=== PATIENT | female | born 1980 | race American Indian/Alaskan Native ===

== ENCOUNTER 2021-11-08 18:01 | Emergency (ER) | payer OTHER ==
[2021-11-08] MEDS ORDERED: oxyCODONE /ACETAMINOPHEN 5-325MG TAB PO ONE (18:59)
[2021-11-08] MEDS ORDERED: ONDANSETRON 4 MG ODT TAB PO ONE (18:59)
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
--- NOTE | 2021-11-08 20:46 | Vascular Lab Report ---
DUPLEX DOPPLER LOWER EXTREMITY VEINS, LEFT INDICATION / CLINICAL INFORMATION: Left lower extremity pain and swelling. TECHNIQUE: Duplex doppler imaging was performed through the veins of the left lower extremity using v enous compression and other maneuvers. COMPARISON: None available. FINDINGS: This exam is limited by the patient's body habitus. LEFT COMMON FEMORAL VEIN: Negative. LEFT FEMORAL VEIN: Acute thrombus. LEFT POPLITEAL VEIN: Acute thrombus. LEFT CALF VEINS: Not visualized. ADDITIONAL FINDINGS: None. IMPRESSION: 1. Limited exam due to the patient's body habitus with acute left lower extremity DVT as above. CRITICAL RESULT: Time of Discovery (RIM TECHNICIAN/CDT): 19:35 Time of Communication (RIM TECHNICIAN/CDT): 19:41 Licensed Practitioner Receiving Report: VINCENT Jett in Emergency Department Read-Back Performed: Yes. Signer Name: Stanford Jackson MD Signed: 11/08/2021 8:41 PM Workstation Name: [id number]
[2021-11-08 21:43] LABS: Basophils % (Auto) 0.7 % (0.0-1.8); Eosinophils # (Auto) 0.1 K/mm3 (0.0-0.4); Eosinophils % (Auto) 1.5 % (0.0-4.3); Hematocrit 20.6 % (30.3-42.9); Hemoglobin 6.5 gm/dl (10.1-14.3); Lymphocytes # (Auto) 0.9 K/mm3 (1.2-5.4); Lymphocytes % (Auto) 15.6 % (13.4-35.0); Mean Corpuscular HGB Conc 32 % (30-34); Mean Corpuscular Volume 71 fl (79-97); Monocytes # (Auto) 0.7 K/mm3 (0.0-0.8); Monocytes % (Auto) 12.4 % (0.0-7.3); Platelet Count 413 K/mm3 (140-440); Red Blood Count 2.88 M/mm3 (3.65-5.03)
[2021-11-08 21:52] LABS: INR 1.03 (0.87-1.13)
[2021-11-08 21:53] LABS: Partial Thromboplastin Time 43.4 Sec. (24.2-36.6)
[2021-11-08 21:59] LABS: Blood Urea Nitrogen 6 mg/dL (7-17); Hemolysis Index 0
[2021-11-08 22:20] LABS: BUN/Creatinine Ratio 9
[2021-11-08] MEDS ORDERED: ENOXAPARIN 100 MG/1 ML INJ SUB-Q STA (23:27)
--- NOTE | 2021-11-08 23:56 | Cat Scan Report ---
CTA CHEST WITH CONTRAST INDICATION / CLINICAL INFORMATION: Patient complains of S.O.B. with a Hx of DVT's. TECHNIQUE: Axial CT images were obtained through the chest after injection of Omnipaque 350, 100 cc I V contrast. 3 plane MIP and/or 3D reconstructions were produced. All CT scans at this location are pe rformed using CT dose reduction for ALARA by means of automated exposure control. COMPARISON: None available. FINDINGS: PULMONARY ARTERIES: No pulmonary emboli. THORACIC AORTA: No significant abnormality. HEART: No significant abnormality. CORONARY ARTERY CALCIFICATION: None. MEDIASTINUM / ZULEMA: No significant abnormality. PLEURA: No pleural effusion. No pneumothorax. LUNGS: No significant infiltrate. Mild air trapping left base. ADDITIONAL FINDINGS: None. UPPER ABDOMEN: No acute findings. SKELETAL STRUCTURES: No significant osseous abnormality. IMPRESSION: 1. No CT evidence for pulmonary embolism. 2. Mild air trapping left base. 3. Negative for pneumonia. Signer Name: Isael Weston MD Signed: 11/08/2021 11:51 PM Workstation Name: [id number]
[2021-11-09 00:06] LABS: Alanine Aminotransferase 8 units/L (7-56); Albumin 3.5 g/dL (3.9-5)
[2021-11-09 00:07] LABS: Bilirubin,Direct < 0.2 mg/dL (0-0.2)
[2021-11-09 03:47] VITALS: BP 142/74
== END 2021-11-09 03:47 | disposition home or self-care (01) ==
LOC: ED 18:01
DX: I82.412 Acute embolism and thrombosis of left femoral vein (principal); Z91.040 Latex allergy status
CPT/HCPCS: 36415; 71275; 80048; 80076; 83880; 84484; 84702; 85025; 85610; 85730; 93971; 96372; 99284; J1650; Q9967; J3490; Q0162

== ENCOUNTER 2021-12-12 10:25 | Emergency (ER) | payer OTHER ==
[2021-12-12] MEDS ORDERED: SODIUM CHLORIDE 0.9% 1000 ML 1,000 ML IV ONE (11:18)
--- NOTE | 2021-12-12 11:21 | Emergency Department Report ---
<TONY CHEATHAM - Last Filed: 12/12/21 12:09> ED General Adult HPI - General Chief complaint: Recheck/Abnormal Lab/Rx Stated complaint: BLOOD TRANFUSION Source: patient Mode of arrival: Ambulatory Limitations: No Limitations - History of Present Illness Initial comments: Patient is a 41-year-old -[place] female with a history of DVT and who is currently on Xarelto, and iron deficiency anemia and history of heavy vaginal bleeding who presents to the ED with complaint of acute onset persistent heavy vaginal bleeding for the last 10 days. Patient states that in the last 4 days she has been feeling lightheaded, generalized weakness and decided come to the ED for evaluation. Patient states that the symptoms have worsened in the last 24 hours. Patient denies dizziness, syncope, chest pain or shortness of breath, fever, chills, nausea and vomiting, diarrhea, cough, sore throat, abdominal pain, dysuria or low back pain. MD Complaint: Heavy vaginal bleeding, lightheadedness, generalized weakness -: Sudden, days(s) (10) Location: genitals (Vaginal bleeding) Radiation: non-radiation Severity scale (0 -10): 6 Quality: dull Consistency: constant Improves with: none Worsens with: movement, other (Physical activity) Associated Symptoms: denies other symptoms, loss of appetite, malaise, weakness. denies: confusion, chest pain, cough, diaphoresis, fever/chills, headaches, nausea/vomiting, rash, seizure, shortness of breath, syncope Treatments Prior to Arrival: none - Related Data Home Medications Medication Instructions Recorded Confirmed Last Taken Albuterol Mdi (or & Nicu Only) 1 puff IH PRN PRN 11/29/21 11/29/21 2 Months Ago [ProAir HFA Inhaler] ~10/01/21 Amlodipine Besylate [Norvasc] 5 mg PO DAILY 11/29/21 11/29/21 11/28/21 Fluticasone Propion/Salmeterol 1 each IH PRN 11/29/21 11/29/21 2 Months Ago [Wixela 250-50 Inhub] ~10/01/21 Iron Fum,Ps/Folic/Bcomp,C No.9 1 each PO DAILY 11/29/21 11/29/21 11/28/21 [Integra Plus Capsule] Rivaroxaban [Xarelto Starter Pack] 1 each PO DAILY 11/29/21 11/29/21 11/28/21 Triamterene/Hydrochlorothiazid 1 tab PO DAILY 11/29/21 11/29/21 2 Months Ago [Triamterene-Hctz 37.5-25 mg Tb] ~10/01/21 Previous Rx's Medication Instructions Recorded Last Taken Type Acetaminophen/Codeine [Tylenol 1 tab PO Q6H PRN #12 tab 11/09/21 2 Days Ago Rx /Codeine # 3 tab] ~11/27/21 Tizanidine HCl 2 mg PO Q6H PRN #24 11/29/21 Unknown Rx oxyCODONE /ACETAMINOPHEN [Percocet 1 tab PO Q6HR PRN #24 tablet 11/29/21 Unknown Rx 5/325] Allergies Allergy/AdvReac Type Severity Reaction Status Date / Time latex AdvReac Mild Unknown Verified 11/08/21 19:31 ED Review of Systems Constitutional: malaise, weakness. denies: chills, fever Eyes: denies: eye pain, eye discharge, vision change ENT: denies: ear pain, throat pain Respiratory: denies: cough, shortness of breath, wheezing Cardiovascular: other (Lightheadedness). denies: chest pain, palpitations, dyspnea on exertion, edema, syncope Endocrine: no symptoms reported Gastrointestinal: denies: abdominal pain, nausea, vomiting, diarrhea Genitourinary: denies: urgency, dysuria, discharge Musculoskeletal: denies: back pain, joint swelling, arthralgia Skin: denies: rash, lesions Neurological: denies: headache, weakness, paresthesias Psychiatric: denies: anxiety, depression Hematological/Lymphatic: denies: easy bleeding, easy bruising ED Past Medical Hx - Past Medical History Hx Hypertension: Yes Hx Deep Vein Thrombosis: Yes Hx Asthma: Yes - Social History Smoking Status: Never Smoker - Medications Home Medications: Home Medications Medication Instructions Recorded Confirmed Last Taken Type Acetaminophen/Codeine [Tylenol 1 tab PO Q6H PRN #12 tab 11/09/21 11/29/21 2 Days Ago Rx /Codeine # 3 tab] ~11/27/21 Albuterol Mdi (or & Nicu Only) 1 puff IH PRN PRN 11/29/21 11/29/21 2 Months Ago History [ProAir HFA Inhaler] ~10/01/21 Amlodipine Besylate [Norvasc] 5 mg PO DAILY 11/29/21 11/29/21 11/28/21 History Fluticasone Propion/Salmeterol 1 each IH PRN 11/29/21 11/29/21 2 Months Ago History [Wixela 250-50 Inhub] ~10/01/21 Iron Fum,Ps/Folic/Bcomp,C No.9 1 each PO DAILY 11/29/21 11/29/21 11/28/21 History [Integra Plus Capsule] Rivaroxaban [Xarelto Starter Pack] 1 each PO DAILY 11/29/21 11/29/21 11/28/21 History Tizanidine HCl 2 mg PO Q6H PRN #24 11/29/21 Unknown Rx Triamterene/Hydrochlorothiazid 1 tab PO DAILY 11/29/21 11/29/21 2 Months Ago History [Triamterene-Hctz 37.5-25 mg Tb] ~10/01/21 oxyCODONE /ACETAMINOPHEN [Percocet 1 tab PO Q6HR PRN #24 tablet 11/29/21 Unknown Rx 5/325] ED Physical Exam - General Limitations: No Limitations General appearance: alert, in no apparent distress - Head Head exam: Present: atraumatic, normocephalic, normal inspection - Eye Eye exam: Present: normal appearance, PERRL, EOMI Pupils: Present: normal accommodation - ENT ENT exam: Present: normal exam, normal orophraynx, mucous membranes moist, TM's normal bilaterally, normal external ear exam - Neck Neck exam: Present: normal inspection, full ROM. Absent: tenderness - Respiratory Respiratory exam: Present: normal lung sounds bilaterally. Absent: respiratory distress, wheezes, rales, rhonchi, chest wall tenderness, accessory muscle use, decreased breath sounds, prolonged expiratory - Cardiovascular Cardiovascular Exam: Present: regular rate, normal rhythm, normal heart sounds. Absent: systolic murmur, diastolic murmur, rubs, gallop - GI/Abdominal GI/Abdominal exam: Present: soft, normal bowel sounds. Absent: tenderness, rebound, hyperactive bowel sounds, hypoactive bowel sounds, organomegaly - Extremities Exam Extremities exam: Present: normal inspection, full ROM, normal capillary refill - Back Exam Back exam: Present: normal inspection, full ROM. Absent: tenderness, CVA tenderness (R), CVA tenderness (L), muscle spasm, paraspinal tenderness, ryder tebral tenderness - Neurological Exam Neurological exam: Present: alert, oriented X3, CN II-XII intact, normal gait, reflexes normal - Psychiatric Psychiatric exam: Present: normal affect, normal mood - Skin Skin exam: Present: warm, dry, intact, normal color. Absent: rash ED Medical Decision Making - Lab Data Result diagrams: 12/12/21 10:54 - Medical Decision Making Based on patient's history and physical exam findings, lab test results patient care was transferred to the ED attending physician Dr. Veloz who she will assume care and disposition the patient accordingly. Patient was subsequently transferred to the main ED room for further evaluation. - Differential Diagnosis Anemia, lightheadedness; generalized weakness ED Disposition Clinical Impression: Generalized weakness, Lightheadedness, Acute blood loss anemia, Symptomatic anemia Disposition: 01 HOME / SELF CARE / HOMELESS Is pt being admited?: Yes Does the pt Need Aspirin: No Condition: Stable Instructions: Blood Transfusion, Adult, Care After Referrals: PRIMARY CARE, [Primary Care Provider] - 3-5 Days Forms: Work/School Release Form(ED) <OSCRA VELOZ - Last Filed: 12/13/21 12:14> ED Review of Systems ROS: Stated complaint: BLOOD TRANFUSION Other details as noted in HPI ED Course Vital Signs 12/12/21 12/12/21 12/12/21 10:31 12:30 12:32 Temperature 98.4 F Pulse Rate 98 H Respiratory 18 18 Rate Blood Pressure 127/76 O2 Sat by Pulse 100 98 100 Oximetry 12/12/21 12/12/21 12/12/21 13:44 13:46 14:00 Temperature Pulse Rate Respiratory Rate Blood Pressure 124/82 124/82 115/65 O2 Sat by Pulse 100 100 100 Oximetry 12/12/21 12/12/21 12/12/21 14:16 14:30 15:19 Temperature 98.2 F Pulse Rate 71 Respiratory 16 Rate Blood Pressure 115/65 124/76 119/74 O2 Sat by Pulse 100 100 100 Oximetry 12/12/21 12/12/21 12/12/21 15:20 15:30 16:20 Temperature 98.7 F 98.7 F 98.4 F Pulse Rate 68 69 78 Respiratory 14 13 16 Rate Blood Pressure 123/60 124/76 117/74 O2 Sat by Pulse 100 100 100 Oximetry 12/12/21 12/12/21 12/12/21 16:23 16:30 16:35 Temperature 98.5 F 98.5 F Pulse Rate 72 67 Respiratory 15 16 Rate Blood Pressure 124/74 121/84 118/73 O2 Sat by Pulse 98 98 100 Oximetry 12/12/21 12/12/21 12/12/21 16:46 17:00 17:16 Temperature Pulse Rate Respiratory Rate Blood Pressure 121/84 116/75 116/75 O2 Sat by Pulse 98 97 97 Oximetry 12/12/21 12/12/21 12/12/21 17:30 17:31 17:40 Temperature 98.8 F Pulse Rate 71 Respiratory 13 Rate Blood Pressure 117/71 117/67 117/71 O2 Sat by Pulse 95 100 95 Oximetry 12/12/21 12/12/21 12/12/21 17:50 18:00 18:10 Temperature Pulse Rate Respiratory Rate Blood Pressure 117/71 124/78 124/78 O2 Sat by Pulse 96 97 97 Oximetry 12/12/21 12/12/21 12/12/21 18:20 20:11 20:46 Temperature 99.2 F 98.9 F Pulse Rate 85 86 Respiratory 17 17 Rate Blood Pressure 124/78 113/71 110/62 O2 Sat by Pulse 96 100 100 Oximetry 12/12/21 22:02 Temperature 98.5 F Pulse Rate 84 Respiratory 16 Rate Blood Pressure 110/56 O2 Sat by Pulse 100 Oximetry ED Medical Decision Making - Lab Data Result diagrams: 12/12/21 22:10 12/12/21 12:13 - Medical Decision Making Patient examined by me. Patient referred to the ER by vascular surgeon Dr. Tony Guillen who stated that patient has been bleeding for 10 days. Patient had a recent thrombectomy and started on Xarelto. Patient also had history of fibroid started to have a vaginal bleeding. Patient stated that she is not bleeding. He told me that her hemoglobin was 4.2. Her hemoglobin today is 5.2. I wrote for 2 units of PRBC. Critical Care Time: Yes Critical care time in (mins) excluding proc time.: 35 Critical care attestation.: If time is entered above; I have spent that time in minutes in the direct care of this critically ill patient, excluding procedure time. ED Disposition Is pt being admited?: No
[2021-12-12 11:31] LABS: Mean Corpuscular HGB Conc 31 % (30-34); Mean Corpuscular Volume 81 fl (79-97); Red Blood Count 2.08 M/mm3 (3.65-5.03)
[2021-12-12 11:32] LABS: Platelet Count 365 K/mm3 (140-440)
[2021-12-12 11:33] LABS: Hematocrit 16.8 % (30.3-42.9); Hemoglobin 5.2 gm/dl (10.1-14.3)
[2021-12-12] MEDS ORDERED: SODIUM CHLORIDE 0.9% 500 ML 500 ML IV ONE ×2 (12:19→18:42)
[2021-12-12 12:33] LABS: Basophils % (Manual) 0 % (0.0-1.8); Total Cells Counted 100
[2021-12-12 12:34] LABS: Anisocytosis 2+; Hypochromasia 1+; Platelet Estimate Consistent w Auto
[2021-12-12 13:26] LABS: Alanine Aminotransferase 7 units/L (7-56); Albumin 3.6 g/dL (3.9-5); BUN/Creatinine Ratio 6; Blood Urea Nitrogen 4 mg/dL (7-17); Calcium 8.8 mg/dL (8.4-10.2); Hemolysis Index 0
[2021-12-12] MEDS ORDERED: SODIUM CHLORIDE 0.9% 1000 ML 1,000 ML ONE (15:04)
[2021-12-12 18:15] LABS: Hematocrit 20.8 % (30.3-42.9); Hemoglobin 6.6 gm/dl (10.1-14.3)
[2021-12-12 22:03] VITALS: BP 110/56
[2021-12-12 22:21] LABS: Hematocrit 21.6 % (30.3-42.9); Hemoglobin 7.3 gm/dl (10.1-14.3)
== END 2021-12-12 23:00 | disposition home or self-care (01) ==
LOC: ED 10:25
DX: R53.1 Weakness (principal); R42 Dizziness and giddiness; D64.9 Anemia, unspecified; I10 Essential (primary) hypertension; J45.909 Unspecified asthma, uncomplicated; Z86.718 Personal history of other venous thrombosis and embolism; Z79.899 Other long term (current) drug therapy; Z91.040 Latex allergy status
CPT/HCPCS: 36415; 36430; 80053; 84703; 85007; 85014; 85018; 85025; 86850; 86900; 86901; 86920; 96360; 99283; J7030; P9016

== ENCOUNTER 2022-01-19 12:46 | Inpatient (IN) | payer OTHER ==
[2022-01-19] MEDS ORDERED: SODIUM CHLORIDE 0.9% 1000 ML 1,000 ML IV ONE (15:00)
--- NOTE | 2022-01-19 15:04 | Emergency Department Report ---
HPI - General Chief Complaint: Weakness Time Seen by Provider: 01/19/22 14:45 - HPI HPI: For the last 4 days the patient has had some heavy vaginal bleeding. She has had this in the past that required blood transfusions. She has a history of a DVT in her left lower extremity for which she is currently on Xarelto. She also has a history of a myomatous uterus causing heavy periods. For the last day or so the patient has felt extremely weak with lightheadedness and with malaise. She feels like she may need another blood transfusion. She denies nausea vomiting fever chills focal weakness headache or any other associated symptoms. She has taken no medicines for this. ED Past Medical Hx - Past Medical History Hx Hypertension: Yes Hx Deep Vein Thrombosis: Yes Hx Asthma: Yes Additional medical history: Myomatous uterus - Surgical History Past Surgical History?: No - Family History Family history: no significant - Social History Smoking Status: Never Smoker Substance Use Type: None - Medications Home Medications: Home Medications Medication Instructions Recorded Confirmed Last Taken Type Acetaminophen/Codeine [Tylenol 1 tab PO Q6H PRN #12 tab 11/09/21 11/29/21 2 Days Ago Rx /Codeine # 3 tab] ~11/27/21 Albuterol Mdi (or & Nicu Only) 1 puff IH PRN PRN 11/29/21 11/29/21 2 Months Ago History [ProAir HFA Inhaler] ~10/01/21 Amlodipine Besylate [Norvasc] 5 mg PO DAILY 11/29/21 11/29/21 11/28/21 History Fluticasone Propion/Salmeterol 1 each IH PRN 11/29/21 11/29/21 2 Months Ago History [Wixela 250-50 Inhub] ~10/01/21 Iron Fum,Ps/Folic/Bcomp,C No.9 1 each PO DAILY 11/29/21 11/29/21 11/28/21 History [Integra Plus Capsule] Rivaroxaban [Xarelto Starter Pack] 1 each PO DAILY 11/29/21 11/29/21 11/28/21 History Tizanidine HCl 2 mg PO Q6H PRN #24 11/29/21 Unknown Rx Triamterene/Hydrochlorothiazid 1 tab PO DAILY 11/29/21 11/29/21 2 Months Ago History [Triamterene-Hctz 37.5-25 mg Tb] ~10/01/21 oxyCODONE /ACETAMINOPHEN [Percocet 1 tab PO Q6HR PRN #24 tablet 11/29/21 Unknown Rx 5/325] ED Review of Systems ROS: Stated complaint: BLOOD TRANSFUSION Other details as noted in HPI Other: All other systems reviewed and negative. Physical Exam - Physical Exam Vital Signs: Vital Signs 01/19/22 13:24 Temperature 98 F Pulse Rate 93 H Respiratory 18 Rate Blood Pressure 146/81 [Right] O2 Sat by Pulse 100 Oximetry Physical Exam: Physical Exam: Constitutional: AAOX3. No acute distress. No diaphoresis. HENT: Normocephalic. Pupils equal and reactive. No throat edema or erythema. The patient has very pale membranes. Neck: No neck rigidity or tenderness. Cardiovascular: Heart sounds: No murmur. Normal rate and regular rhythm. Pulses: Intact distal pulses. Lungs: No wheezing or rales. Chest wall: No tenderness. Abdominal: No distension. No mass/pulsatile mass. No abdominal tenderness, guarding nor rebound. Back: No CVA TTP. Musculoskeletal: Normal range of motion. No edema, No calf TTP. Skin: Warm and dry. Neurological: Alert and oriented to person, place, and time. Psychiatric: Mood and affect normal. Normal cognition and memory. Normal judgement. ED Course Vital Signs 01/19/22 13:24 Temperature 98 F Pulse Rate 93 H Respiratory 18 Rate Blood Pressure 146/81 [Right] O2 Sat by Pulse 100 Oximetry - Reevaluation(s) Reevaluation #1: 01/19/22 17:10 The patient's coagulation profile is altered because of the Xarelto that she takes. Her hemoglobin was 4.6. She will need at least 2 units of blood to get started. I have ordered these. Her ultrasound of the pelvis shows a thickened endometrial stripe at 1.3 cm with only 1 fundal 3.3 cm fibroid. It seems her bleeding is more dysfunctional than abnormal. We will admit her for further evaluation and blood transfusion. Total critical care time: 30 minutes. ED Medical Decision Making - Lab Data Result diagrams: 01/19/22 15:15 01/19/22 15:15 Critical care attestation.: If time is entered above; I have spent that time in minutes in the direct care of this critically ill patient, excluding procedure time. ED Disposition Clinical Impression: Symptomatic anemia, Dysfunctional uterine bleeding Disposition: 02 [facility] Is pt being admited?: Yes Does the pt Need Aspirin: No Condition: Stable
[2022-01-19 16:28] LABS: INR 1.08 (0.87-1.13)
[2022-01-19 16:29] LABS: Partial Thromboplastin Time 53.5 Sec. (24.2-36.6)
[2022-01-19 16:41] LABS: Alanine Aminotransferase 7 units/L (7-56); Albumin 3.6 g/dL (3.9-5); Blood Urea Nitrogen 7 mg/dL (7-17); Calcium 8.4 mg/dL (8.4-10.2); Hemolysis Index 5
[2022-01-19 16:44] LABS: BUN/Creatinine Ratio 12
[2022-01-19 16:51] LABS: Basophils % (Auto) 0.7 % (0.0-1.8); Eosinophils % (Auto) 0.1 % (0.0-4.3); Lymphocytes % (Auto) 5.8 % (13.4-35.0); Mean Corpuscular HGB Conc 30 % (30-34); Mean Corpuscular Volume 82 fl (79-97); Monocytes % (Auto) 3.6 % (0.0-7.3); Platelet Count 250 K/mm3 (140-440); Red Cell Distribution Width 24.2 % (13.2-15.2)
--- NOTE | 2022-01-19 16:51 | Ultrasound Report ---
Pelvic Ultrasound HISTORY: Menorrhagia. TECHNIQUE: Grayscale and color imaging performed. COMPARISON: None FINDINGS: Uterus measures 6.8 x 3.1 x 3.4 cm with endometrial echocomplex measuring 1.3 cm. There is a soft tissue mass in the anterior aspect of the uterine fundus measuring 3.3 cm in maximal dimension , likely a fibroid. The right ovary is not visualized. Left ovary is unremarkable. No pelvic free fluid identified. IMPRESSION: 1. Slightly thickened endometrial echocomplex--correlate with stage in menstrual cycle. 2. Small uterine fibroid. 3. Right ovary not visualized. Signer Name: Fidel Davies MD Signed: 01/19/2022 4:47 PM Workstation Name: [id number]
[2022-01-19 16:52] LABS: Lymphocytes # (Auto) 0.2 K/mm3 (1.2-5.4); Monocytes # (Auto) 0.1 K/mm3 (0.0-0.8)
[2022-01-19 17:04] LABS: Hematocrit 15.6 % (30.3-42.9); Hemoglobin 4.6 gm/dl (10.1-14.3)
[2022-01-19] MEDS ORDERED: SODIUM CHLORIDE 0.9% 500 ML 500 ML IV ONE (17:07)
--- NOTE | 2022-01-19 18:07 | History and Physical Report ---
History of Present Illness Chief complaint: I am bleeding real heavy History of present illness: 41 YO Female with Obesity Hypoventilation Syndrome, HTN, DVT on Therapeutic anticoagulation with Xarelto S/P IVC Filter Placement, Mild Intermittent Asthma presents ED for evaluation. Patient reports "I am bleeding real heavy". Patient states that she has experienced large amounts of vaginal bleeding over the past 2 days with persistent symptoms over the same timeframe. Patient acknowledges generalized weakness, lightheadedness and subsequent loss of consciousness. Patient transported to [facility] via private vehicle for further care and evaluation of the aforementioned symptoms. The patient was seen and evaluated in the emergency department. All lab and imaging studies reviewed. Patient found to have blood loss anemia with concomitant syncope and generalized weakness. Patient found to have hemoglobin of 4 in the emergency department. Patient admitted to medical floor due to increased risk of worsening symptoms. Patient treated with packed red blood cell transfusion. SHUTTLE HAND service consulted in ED. Patient denies fever, chills, chest pain, palpitation, productive cough, skin rash, recent contact, unilateral leg swelling, calf pain, prolonged travel or immobility. No prior admission for review. All medication listed at time of admission has been reconciled. Advanced care planning conducted in ED. Past History Past Medical History: other (See HPI) Past Surgical History: No surgical history, Other (Reviewed) Social history: single. denies: smoking, alcohol abuse, prescription drug abuse Family history: hypertension Medications and Allergies Allergies Allergy/AdvReac Type Severity Reaction Status Date / Time latex AdvReac Mild Unknown Verified 01/19/22 13:26 Home Medications Medication Instructions Recorded Confirmed Last Taken Type Acetaminophen/Codeine [Tylenol 1 tab PO Q6H PRN #12 tab 11/09/21 11/29/21 2 Days Ago Rx /Codeine # 3 tab] ~11/27/21 Albuterol Mdi (or & Nicu Only) 1 puff IH PRN PRN 11/29/21 11/29/21 2 Months Ago History [ProAir HFA Inhaler] ~10/01/21 Amlodipine Besylate [Norvasc] 5 mg PO DAILY 11/29/21 11/29/21 11/28/21 History Fluticasone Propion/Salmeterol 1 each IH PRN 11/29/21 11/29/21 2 Months Ago History [Wixela 250-50 Inhub] ~10/01/21 Iron Fum,Ps/Folic/Bcomp,C No.9 1 each PO DAILY 11/29/21 11/29/21 11/28/21 History [Integra Plus Capsule] Rivaroxaban [Xarelto Starter Pack] 1 each PO DAILY 11/29/21 11/29/21 11/28/21 History Tizanidine HCl 2 mg PO Q6H PRN #24 11/29/21 Unknown Rx Triamterene/Hydrochlorothiazid 1 tab PO DAILY 11/29/21 11/29/21 2 Months Ago History [Triamterene-Hctz 37.5-25 mg Tb] ~10/01/21 oxyCODONE /ACETAMINOPHEN [Percocet 1 tab PO Q6HR PRN #24 tablet 11/29/21 Unknown Rx 5/325] Active Meds: Active Medications Medroxyprogesterone Acetate (Medroxyprogesterone Acetate 5 Mg Tab) 10 mg PO ONCE ONE Stop: 01/19/22 18:09 Review of Systems Constitutional: weakness, no weight loss, no weight gain, no fever, no chills Ears, nose, mouth and throat: no ear pain, no ear discharge Breasts: no change in shape, no mass Cardiovascular: no chest pain, no orthopnea, no palpitations, no edema Respiratory: shortness of breath, no cough, no cough with sputum, no hemoptysis Gastrointestinal: no abdominal pain, no vomiting, no diarrhea, no constipation Genitourinary Female: menorrhagia, no pelvic pain, no flank pain, no urinary frequency, no urgency, no incomplete emptying, no hematuria Menstruation: currently menstrual Rectal: no pain, no incontinence, no bleeding Musculoskeletal: no neck stiffness, no shooting arm pain, no arm numbness/tingling, no low back pain, no shooting leg pain Integumentary: no rash, no redness, no wounds, no jaundice, no boils Neurological: syncope, no head injury, no transient paralysis, no weakness, no parathesias, no numbness, no tingling, no seizures Psychiatric: no anxiety, no change in sleep habits, no insomnia, no change in appetite, no change in libido Endocrine: no cold intolerance, no polyphagia, no excessive thirst Hematologic/Lymphatic: no easy bruising, no easy bleeding Allergic/Immunologic: no urticaria, no allergic rhinitis, no wheezing Exam - Constitutional Vitals: Temp Pulse Resp BP Pulse Ox 98 F 87 18 108/52 99 01/19/22 13:24 01/19/22 17:34 01/19/22 17:34 01/19/22 17:34 01/19/22 17:34 General appearance: Present: mild distress, obese - EENT Eyes: Present: PERRL ENT: hearing intact, clear oral mucosa, other (Conjunctival pallor) - Neck Neck: Present: supple, normal ROM - Respiratory Respiratory effort: normal Respiratory: bilateral: CTA - Cardiovascular Heart Sounds: Present: S1 & S2. Absent: rub, click - Extremities Extremities: pulses symmetrical, No edema Peripheral Pulses: within normal limits - Abdominal General gastrointestinal: Present: soft, non-tender, non-distended, normal bowel sounds Female genitourinary: Present: normal - Integumentary Integumentary: Present: clear, warm, dry - Musculoskeletal Musculoskeletal: gait normal, strength equal bilaterally - Psychiatric Psychiatric: appropriate mood/affect, intact judgment & insight - Neurologic Neurologic: CNII-XII intact, moves all extremities Results - Labs CBC & Chem 7: 01/19/22 15:15 01/19/22 15:15 Labs: Abnormal lab results 01/19/22 01/19/22 01/19/22 Range/Units 15:15 15:15 15:15 WBC 4.1 L (4.5-11.0) K/mm3 RBC 1.90 L (3.65-5.03) M/mm3 Hgb 4.6 L* (10.1-14.3) gm/dl Hct 15.6 L* (30.3-42.9) % MCH 24 L (28-32) pg RDW 24.2 H (13.2-15.2) % Lymph % (Auto) 5.8 L (13.4-35.0) % Lymph # (Auto) 0.2 L (1.2-5.4) K/mm3 PT 15.2 H (12.2-14.9) Sec. APTT 53.5 H (24.2-36.6) Sec. Glucose 101 H (65-100) mg/dL Total Protein 6.2 L (6.3-8.2) g/dL Albumin 3.6 L (3.9-5) g/dL Crossmatch 01/19/22 Range/Units 15:15 WBC (4.5-11.0) K/mm3 RBC (3.65-5.03) M/mm3 Hgb (10.1-14.3) gm/dl Hct (30.3-42.9) % MCH (28-32) pg RDW (13.2-15.2) % Lymph % (Auto) (13.4-35.0) % Lymph # (Auto) (1.2-5.4) K/mm3 PT (12.2-14.9) Sec. APTT (24.2-36.6) Sec. Glucose (65-100) mg/dL Total Protein (6.3-8.2) g/dL Albumin (3.9-5) g/dL Crossmatch See Detail Assessment and Plan - Patient Problems (1) Symptomatic anemia Current Visit: Yes Status: Acute Plan to address problem: Blood cell transfusion, CBC, repeat CBC in a.m., supportive care. (2) Dysfunctional uterine bleeding Current Visit: Yes Status: Acute Plan to address problem: SHUTTLE HAND team consulted. Blood cell transfusion. Supportive care. (3) Obesity hypoventilation syndrome Current Visit: Yes Status: Acute Plan to address problem: Balanced diet, increase physical activity discharge, outpatient pulmonary follow-up for sleep study. (4) History of DVT (deep vein thrombosis) Current Visit: Yes Status: Acute Plan to address problem: Continue therapeutic anticoagulation. (5) DVT prophylaxis Current Visit: Yes Status: Acute Plan to address problem: SCD to bilateral lower extremities while in bed, continue therapeutic anticoagulation. (6) Advance care planning Current Visit: Yes Status: Acute Plan to address problem: Disease education conducted, care plan discussed, diagnoses discussed, prognosis discussed, patient is full code. Patient knowledges understanding and agreement with care plan, +30 minutes. (7) Preventative health care Current Visit: Yes Status: Acute Plan to address problem: Patient counseled regarding balanced diet, weight loss reduction, increase physical activity discharge, meal planning, and outpatient follow-up with bariatric surgery. +30 minutes.
[2022-01-19] MEDS ORDERED: ACETAMINOPHEN 325 MG TAB PO PRN (18:08)
[2022-01-19] MEDS ORDERED: ONDANSETRON 4 MG/2 ML INJ IV PRN (18:08)
[2022-01-19] MEDS ORDERED: ALBUTEROL 2.5 MG/3 ML NEBU IH PRN (18:08)
[2022-01-19] MEDS ORDERED: HYDROmorphone 0.5 MG/0.5 ML INJ IV PRN (18:08)
[2022-01-19] MEDS ORDERED: oxyCODONE /ACETAMINOPHEN 5-325MG TAB PO PRN (18:08)
[2022-01-19] MEDS ORDERED: medroxyPROGESTERone ACETATE 5 MG TAB PO ONE ×2 (18:08→21:00)
[2022-01-19] MEDS ORDERED: SODIUM CHLORIDE 0.9% 500 ML 500 ML IV SCH (18:09)
[2022-01-19] MEDS ORDERED: TIZANIDINE HCL 2 MG PO PRN (18:16)
[2022-01-19] MEDS ORDERED: NON-FORMULARY EACH (Fluticasone Propion/Salmeterol [Wixela 250-50 Inhub] 1 EACH Blst.W.Dev IH SCH (18:30)
[2022-01-19] MEDS ORDERED: tiZANidine TAB 4 MG TAB PO PRN (18:36)
[2022-01-19] MEDS ORDERED: FUROSEMIDE 20 MG/2 ML INJ IV ONE ×2 (19:10→22:15)
[2022-01-19] MEDS: BUDESONIDE 0.5 MG/2 ML NEBU IH SCH (20:00)
[2022-01-19] MEDS: ARFORMOTEROL 15 MCG/2 ML NEBU IH SCH (20:00)
[2022-01-20] MEDS ORDERED: FUROSEMIDE 20 MG/2 ML INJ IV ONE (03:20)
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
--- NOTE | 2022-01-20 08:22 | Event Note ---
Date: 01/20/22 After consultation with the pharmacist the leuprolide acetate is not available for administration. Discussed with the patient of using Depo-Provera in the interim to control her bleeding. The patient was made aware that Depo-Lupron can be administered at a later date if her bleeding is not resolved with the Depo-Provera.
[2022-01-20] MEDS: amLODIPine 5 MG TAB PO SCH (09:04)
[2022-01-20] MEDS: TRIAMTER/HCTZ 37.5-25 MG TAB PO SCH (09:04)
[2022-01-20] MEDS: RIVAROXABAN 20 MG TAB PO SCH ×2 (09:05→20:23)
[2022-01-20] MEDS: MULTIVITAMINS ,THERAPEUTIC TAB PO SCH (09:05)
[2022-01-20] MEDS: ARFORMOTEROL 15 MCG/2 ML NEBU IH SCH (09:10)
[2022-01-20] MEDS: BUDESONIDE 0.5 MG/2 ML NEBU IH SCH (09:11)
[2022-01-20] MEDS ORDERED: medroxyPROGESTERone ACETATE 150 MG/ML SYRINGE IM NR (10:00)
[2022-01-20] MEDS ORDERED: NON-FORMULARY EACH (Iron Fum,Ps/Folic/Bcomp,C No.9 [Integra Plus Capsule] 1 EACH Capsule) PO SCH (10:00)
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
[2022-01-20 17:08] LABS: Basophils % (Auto) 0.7 % (0.0-1.8); Eosinophils # (Auto) 0.1 K/mm3 (0.0-0.4); Hematocrit 25.3 % (30.3-42.9); Hemoglobin 8.4 gm/dl (10.1-14.3); Lymphocytes # (Auto) 0.7 K/mm3 (1.2-5.4); Lymphocytes % (Auto) 16.2 % (13.4-35.0); Mean Corpuscular HGB Conc 33 % (30-34); Mean Corpuscular Volume 83 fl (79-97); Monocytes # (Auto) 0.3 K/mm3 (0.0-0.8); Monocytes % (Auto) 7.9 % (0.0-7.3); Platelet Count 206 K/mm3 (140-440); Red Blood Count 3.04 M/mm3 (3.65-5.03)
[2022-01-20 17:31] LABS: Blood Urea Nitrogen 7 mg/dL (7-17); Calcium 8.6 mg/dL (8.4-10.2); Hemolysis Index 2
[2022-01-20 18:15] LABS: BUN/Creatinine Ratio 10
[2022-01-21 05:37] LABS: Basophils % (Auto) 0.8 % (0.0-1.8); Eosinophils # (Auto) 0.1 K/mm3 (0.0-0.4); Eosinophils % (Auto) 3.1 % (0.0-4.3); Hematocrit 23.5 % (30.3-42.9); Hemoglobin 7.8 gm/dl (10.1-14.3); Lymphocytes # (Auto) 0.9 K/mm3 (1.2-5.4); Lymphocytes % (Auto) 21.4 % (13.4-35.0); Mean Corpuscular HGB Conc 33 % (30-34); Mean Corpuscular Volume 83 fl (79-97); Monocytes # (Auto) 0.4 K/mm3 (0.0-0.8); Monocytes % (Auto) 9.5 % (0.0-7.3); Platelet Count 193 K/mm3 (140-440); Red Blood Count 2.85 M/mm3 (3.65-5.03); Red Cell Distribution Width 17.4 % (13.2-15.2)
[2022-01-21 05:55] LABS: Blood Urea Nitrogen 8 mg/dL (7-17); Calcium 8.7 mg/dL (8.4-10.2); Hemolysis Index 3
[2022-01-21 05:56] LABS: BUN/Creatinine Ratio 11
[2022-01-21] MEDS: TRIAMTER/HCTZ 37.5-25 MG TAB PO SCH (10:04)
[2022-01-21] MEDS: MULTIVITAMINS ,THERAPEUTIC TAB PO SCH (10:05)
[2022-01-21] MEDS: amLODIPine 5 MG TAB PO SCH (10:05)
[2022-01-21] MEDS: RIVAROXABAN 20 MG TAB PO SCH (10:09)
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
[2022-01-21] MEDS ORDERED: RIVAROXABAN 20 MG TAB PO SCH (20:00)
[2022-01-21] MEDS: BUDESONIDE 0.5 MG/2 ML NEBU IH SCH ×3 (20:08→20:12)
[2022-01-21] MEDS: ARFORMOTEROL 15 MCG/2 ML NEBU IH SCH ×3 (20:08→20:12)
[2022-01-22 05:40] LABS: Basophils % (Auto) 0.3 % (0.0-1.8); Eosinophils # (Auto) 0.1 K/mm3 (0.0-0.4); Eosinophils % (Auto) 2.5 % (0.0-4.3); Hematocrit 22.4 % (30.3-42.9); Hemoglobin 7.4 gm/dl (10.1-14.3); Lymphocytes # (Auto) 0.8 K/mm3 (1.2-5.4); Lymphocytes % (Auto) 21.7 % (13.4-35.0); Mean Corpuscular HGB Conc 33 % (30-34); Mean Corpuscular Volume 83 fl (79-97); Monocytes # (Auto) 0.3 K/mm3 (0.0-0.8); Platelet Count 205 K/mm3 (140-440); Red Cell Distribution Width 17.7 % (13.2-15.2)
[2022-01-22 05:59] LABS: Blood Urea Nitrogen 7 mg/dL (7-17); Calcium 8.7 mg/dL (8.4-10.2); Hemolysis Index 1
[2022-01-22 06:07] LABS: BUN/Creatinine Ratio 10
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
[2022-01-22] MEDS ORDERED: POTASSIUM CHLORIDE ER 20 MEQ TAB PO SCH (09:30)
[2022-01-22] MEDS ORDERED: POTASSIUM CHLORIDE ER 20 MEQ TAB PO NR (09:30)
[2022-01-22] MEDS: ARFORMOTEROL 15 MCG/2 ML NEBU IH SCH (09:32)
[2022-01-22] MEDS: BUDESONIDE 0.5 MG/2 ML NEBU IH SCH (09:32)
[2022-01-22] MEDS: MULTIVITAMINS ,THERAPEUTIC TAB PO SCH (09:46)
[2022-01-22] MEDS: TRIAMTER/HCTZ 37.5-25 MG TAB PO SCH (09:47)
[2022-01-22] MEDS: amLODIPine 5 MG TAB PO SCH (09:47)
[2022-01-22 12:52] VITALS: BP 105/54
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
== END 2022-01-22 14:50 | disposition home or self-care (01) | DRG 760 ==
LOC: ED 12:46 → 3A 18:08
PROVIDERS: ADMIT Internal Medicine; ATTEND Internal Medicine
DX: D25.9 Leiomyoma of uterus, unspecified (principal); E66.2 Morbid (severe) obesity with alveolar hypoventilation; Z68.42 Body mass index [BMI] 45.0-49.9, adult; N93.8 Other specified abnormal uterine and vaginal bleeding; R55 Syncope and collapse; D64.9 Anemia, unspecified; I10 Essential (primary) hypertension; Z86.718 Personal history of other venous thrombosis and embolism; J45.909 Unspecified asthma, uncomplicated
CPT/HCPCS: 36415; 76830; 80048; 80053; 85025; 85610; 85730; 86850; 86900; 86901; 86920; 93005; 94640; G0378; J1050; J1940; J7030; J7040; P9016

== ENCOUNTER 2022-03-13 07:15 | Emergency (ER) | payer OTHER ==
[2022-03-13 09:40] LABS: Basophils % (Auto) 0.5 % (0.0-1.8); Eosinophils % (Auto) 0.9 % (0.0-4.3); Lymphocytes # (Auto) 0.5 K/mm3 (1.2-5.4); Lymphocytes % (Auto) 15.5 % (13.4-35.0); Mean Corpuscular HGB Conc 32 % (30-34); Mean Corpuscular Volume 95 fl (79-97); Monocytes # (Auto) 0.3 K/mm3 (0.0-0.8); Monocytes % (Auto) 7.3 % (0.0-7.3); Platelet Count 280 K/mm3 (140-440); Red Blood Count 1.94 M/mm3 (3.65-5.03)
[2022-03-13 09:44] LABS: Alanine Aminotransferase 8 units/L (7-56); Albumin 3.8 g/dL (3.9-5); BUN/Creatinine Ratio 8; Blood Urea Nitrogen 7 mg/dL (7-17); Calcium 9.1 mg/dL (8.4-10.2); Hemolysis Index 2
[2022-03-13 09:45] LABS: Bilirubin,Urine Negative (Negative); Blood,Urine Large (Negative); Color,Urine Straw (Yellow)
[2022-03-13 09:46] LABS: Urobilinogen,Urine < 2.0 mg/dL (<2.0)
[2022-03-13 09:49] LABS: Mucus,Urine FEW /HPF
[2022-03-13 09:52] LABS: Hematocrit 18.5 % (30.3-42.9)
[2022-03-13 09:53] LABS: RBC,Urine > 182.0 /HPF (0.0-6.0)
[2022-03-13 09:53] LABS: Red Cell Distribution Width 21.8 % (13.2-15.2)
[2022-03-13 10:01] LABS: INR 1.12 (0.87-1.13)
[2022-03-13] MEDS ORDERED: SODIUM CHLORIDE 0.9% 500 ML 500 ML IV ONE ×2 (10:26→15:00)
--- NOTE | 2022-03-13 10:32 | Emergency Department Report ---
ED Recheck HPI - General Chief Complaint: Recheck/Abnormal Lab/Rx Stated Complaint: DR BAÑUELOS Time Seen by Provider: 03/13/22 10:01 Source: patient Mode of arrival: Ambulatory Limitations: No Limitations - History of Present Illness Initial Comments: 41-year-old female with a history of dysfunctional uterine bleeding and uterine fibroid, DVT s/p abdominal aortic stent and currently on blood thinner who now presents with worsening uterine bleeding that is been going on since January 2021. Pt was seen here in August this year when she was diagnosed with DUB and DVT. Pt have had blood transfusion twice one in August and December. Both times she had 3 units and 4 units respectively. She was sent in from clinic for an abnormal labs with low hemoglobin of 5.8. with a repeat at the ED today at 6.0. Pt also reports current bleeding and changing her pad once every hour. Pt is planned to have uterine fibroid embolization done in 2 days this Friday. No fever or chills reported or any other modifying or associated factors. - Related Data Home Medications Medication Instructions Recorded Confirmed Last Taken Albuterol Mdi (or & Nicu Only) 1 puff IH PRN PRN 11/29/21 01/20/22 2 Months Ago [ProAir HFA Inhaler] ~10/01/21 Amlodipine Besylate [Norvasc] 5 mg PO DAILY 11/29/21 01/20/22 11/28/21 Fluticasone Propion/Salmeterol 1 each IH PRN 11/29/21 01/20/22 2 Months Ago [Wixela 250-50 Inhub] ~10/01/21 Iron Fum,Ps/Folic/Bcomp,C No.9 1 each PO DAILY 11/29/21 01/20/22 11/28/21 [Integra Plus Capsule] Rivaroxaban [Xarelto Starter Pack] 1 each PO DAILY 11/29/21 01/20/22 11/28/21 Triamterene/Hydrochlorothiazid 1 tab PO DAILY 11/29/21 01/20/22 2 Months Ago [Triamterene-Hctz 37.5-25 mg Tb] ~10/01/21 Previous Rx's Medication Instructions Recorded Last Taken Type Acetaminophen/Codeine [Tylenol 1 tab PO Q6H PRN #12 tab 11/09/21 2 Days Ago Rx /Codeine # 3 tab] ~11/27/21 Tizanidine HCl 2 mg PO Q6H PRN #24 11/29/21 Unknown Rx oxyCODONE /ACETAMINOPHEN [Percocet 1 tab PO Q6HR PRN #24 tablet 11/29/21 Unknown Rx 5/325 mg] Ferrous Sulfate [Feosol 325 MG tab] 325 mg PO BID #60 tablet 03/13/22 Unknown Rx Allergies Allergy/AdvReac Type Severity Reaction Status Date / Time latex AdvReac Mild Unknown Verified 03/13/22 08:20 ED Review of Systems ROS: Stated complaint: DR BAÑUELOS Other details as noted in HPI Comment: All other systems reviewed and negative Cardiovascular: other (dizziness) Genitourinary: other (Uterine bleeding ) ED Past Medical Hx - Past Medical History Hx Hypertension: Yes Hx Congestive Heart Failure: Yes Hx Deep Vein Thrombosis: Yes (IVC FILTER) Hx Asthma: Yes Additional medical history: Myomatous uterus - Social History Smoking Status: Unknown if ever smoked Substance Use Type: None - Medications Home Medications: Home Medications Medication Instructions Recorded Confirmed Last Taken Type Acetaminophen/Codeine [Tylenol 1 tab PO Q6H PRN #12 tab 11/09/21 01/20/22 2 Days Ago Rx /Codeine # 3 tab] ~11/27/21 Albuterol Mdi (or & Nicu Only) 1 puff IH PRN PRN 11/29/21 01/20/22 2 Months Ago History [ProAir HFA Inhaler] ~10/01/21 Amlodipine Besylate [Norvasc] 5 mg PO DAILY 11/29/21 01/20/22 11/28/21 History Fluticasone Propion/Salmeterol 1 each IH PRN 11/29/21 01/20/22 2 Months Ago History [Wixela 250-50 Inhub] ~10/01/21 Iron Fum,Ps/Folic/Bcomp,C No.9 1 each PO DAILY 11/29/21 01/20/22 11/28/21 History [Integra Plus Capsule] Rivaroxaban [Xarelto Starter Pack] 1 each PO DAILY 11/29/21 01/20/22 11/28/21 History Tizanidine HCl 2 mg PO Q6H PRN #24 11/29/21 01/20/22 Unknown Rx Triamterene/Hydrochlorothiazid 1 tab PO DAILY 11/29/21 01/20/22 2 Months Ago History [Triamterene-Hctz 37.5-25 mg Tb] ~10/01/21 oxyCODONE /ACETAMINOPHEN [Percocet 1 tab PO Q6HR PRN #24 tablet 11/29/21 01/20/22 Unknown Rx 5/325 mg] Ferrous Sulfate [Feosol 325 MG tab] 325 mg PO BID #60 tablet 03/13/22 Unknown Rx ED Physical Exam - General Limitations: No Limitations General appearance: alert, in no apparent distress - Head Head exam: Present: normal inspection - Eye Eye exam: Present: other (pale conjunctival ) - ENT ENT exam: Present: normal exam, normal orophraynx, mucous membranes dry - Neck Neck exam: Present: normal inspection, full ROM. Absent: tenderness - Respiratory Respiratory exam: Present: normal lung sounds bilaterally. Absent: respiratory distress, accessory muscle use - Cardiovascular Cardiovascular Exam: Present: regular rate, normal rhythm, normal heart sounds - GI/Abdominal GI/Abdominal exam: Present: soft, normal bowel sounds. Absent: distended, tenderness - External exam: Present: bleeding (uterine per vaginal) Bi-manual exam: Present: other (uterine bleeding ) - Extremities Exam Extremities exam: Present: normal inspection, normal capillary refill. Absent: tenderness, pedal edema, joint swelling - Back Exam Back exam: Absent: tenderness - Neurological Exam Neurological exam: Present: alert, oriented X3 - Psychiatric Psychiatric exam: Present: normal affect, normal mood - Skin Skin exam: Present: warm, normal color ED Course Vital Signs 03/13/22 03/13/22 03/13/22 08:11 08:15 09:14 Temperature 99.0 F 99.0 F Pulse Rate 99 H 101 H 76 Respiratory 20 20 19 Rate Blood Pressure 138/88 138/88 Blood Pressure [Left] O2 Sat by Pulse 100 100 100 Oximetry 03/13/22 03/13/22 03/13/22 09:15 09:18 09:26 Temperature Pulse Rate 78 75 Respiratory 20 20 Rate Blood Pressure 108/45 Blood Pressure [Left] O2 Sat by Pulse 100 100 Oximetry 03/13/22 03/13/22 03/13/22 09:31 09:45 10:01 Temperature Pulse Rate 72 71 76 Respiratory 17 16 19 Rate Blood Pressure 112/42 77/34 101/32 Blood Pressure [Left] O2 Sat by Pulse 100 100 100 Oximetry 03/13/22 03/13/22 03/13/22 10:15 10:31 10:45 Temperature Pulse Rate 74 76 74 Respiratory 18 19 17 Rate Blood Pressure 113/41 116/68 116/68 Blood Pressure [Left] O2 Sat by Pulse 100 100 100 Oximetry 03/13/22 03/13/22 03/13/22 11:00 11:51 12:01 Temperature Pulse Rate 72 75 78 Respiratory 14 19 17 Rate Blood Pressure 116/68 110/58 104/54 Blood Pressure [Left] O2 Sat by Pulse 100 100 100 Oximetry 03/13/22 03/13/22 03/13/22 12:15 12:31 12:45 Temperature Pulse Rate 77 78 72 Respiratory 19 13 17 Rate Blood Pressure 104/54 99/52 99/52 Blood Pressure [Left] O2 Sat by Pulse 100 100 100 Oximetry 03/13/22 03/13/22 03/13/22 13:01 13:15 13:31 Temperature Pulse Rate 75 74 97 H Respiratory 17 18 19 Rate Blood Pressure 108/59 108/59 101/58 Blood Pressure [Left] O2 Sat by Pulse 100 100 100 Oximetry 03/13/22 14:42 Temperature 98.6 F Pulse Rate 84 Respiratory 18 Rate Blood Pressure Blood Pressure 108/53 [Left] O2 Sat by Pulse 100 Oximetry - Reevaluation(s) Reevaluation #1: 03/13/22 14:36 Given 2 units of pRBC -- this patient can safely be discharge home with hemoglobin above 7 mg/dl ED Recheck MDM - Medical Decision Making here with worsening DUB with h/o fibroid with likely bleeding from her fibroid muscle -- noted with hemoglobin 6.0 so will go ahead and start her on 1 Unit pRBC and repeat before discharge home since this patient has been discharged from ED in the past with 3 and 4 units pRBC in recent past with no issues. Pt is encouraged to keep her schedule fibroid embolization in 2 days. Critical care attestation.: If time is entered above; I have spent that time in minutes in the direct care of this critically ill patient, excluding procedure time. ED Disposition Clinical Impression: DUB (dysfunctional uterine bleeding), Blood loss anemia Fibroid, uterine Qualifiers: Uterine leiomyoma location: unspecified location Qualified Code(s): D25.9 - Leiomyoma of uterus, unspecified Anemia Qualifiers: Anemia type: other cause Other causes of anemia: other cause, not classified Qualified Code(s): D64.89 - Other specified anemias Disposition: 01 HOME / SELF CARE / HOMELESS Is pt being admited?: No Does the pt Need Aspirin: No Condition: Stable Instructions: Uterine Artery Embolization for Fibroids, Uterine Fibroids, Bexs-su-Sype, Abnormal Uterine Bleeding, [id number] Additional Instructions: Increase your daily fluid to help your hydration Please keep your appointment for your fibroid embolization with your [facility]ST scheduled for the next 2 days Please do not hesitate to call or return to emergency room if your symptoms worsen such as bleeding Prescriptions: Ferrous Sulfate [Feosol 325 MG tab] 325 mg PO BID #60 tablet Referrals: PRIMARY CAREMD [Primary Care Provider] - 3-5 Days Time of Disposition: 14:39
[2022-03-13] MEDS ORDERED: ACETAMINOPHEN 500 MG TAB PO ONE (16:45)
[2022-03-13 22:01] VITALS: BP 104/56
[2022-03-13 22:06] LABS: Basophils % (Auto) 0.8 % (0.0-1.8); Eosinophils # (Auto) 0.1 K/mm3 (0.0-0.4); Hematocrit 22.4 % (30.3-42.9); Hemoglobin 7.1 gm/dl (10.1-14.3); Lymphocytes # (Auto) 0.9 K/mm3 (1.2-5.4); Lymphocytes % (Auto) 26.3 % (13.4-35.0); Mean Corpuscular HGB Conc 32 % (30-34); Mean Corpuscular Volume 96 fl (79-97); Monocytes # (Auto) 0.3 K/mm3 (0.0-0.8); Monocytes % (Auto) 8.9 % (0.0-7.3); Platelet Count 224 K/mm3 (140-440); Red Blood Count 2.35 M/mm3 (3.65-5.03); Red Cell Distribution Width 19.4 % (13.2-15.2)
--- NOTE | 2022-03-15 14:05 | Electrocardiograph Report ---
[facility] Test Date: 2022-03-13 Test Time: 08:38:12 Pat Name: ANDREW BANKS Department: Room: Gender: F Director Acute: INNA : 1980 Requested By: MARSHA ARAUJO Order Number: [id number] Reading MD: Janeth Vang Measurements Intervals Early Rate: 73 P: 54 KS: 149 QRS: 15 QRSD: 81 T: 32 QT: 378 QTc: 416 Interpretive Statements Sinus rhythm Low voltage, precordial leads Compared to ECG 01/19/2022 19:12:19 No significant change Electronically Signed On 03-15-2022 14:04:50 EDT by Janeth Vang
== END 2022-03-13 23:17 | disposition home or self-care (01) ==
LOC: ED 07:15
DX: N93.8 Other specified abnormal uterine and vaginal bleeding (principal); D64.9 Anemia, unspecified; D25.9 Leiomyoma of uterus, unspecified; I11.0 Hypertensive heart disease with heart failure; I50.9 Heart failure, unspecified; I82.409 Acute embolism and thrombosis of unspecified deep veins of unspecified lower extremity; J45.909 Unspecified asthma, uncomplicated; Z91.040 Latex allergy status
CPT/HCPCS: 36415; 36430; 80053; 81001; 84484; 85025; 85610; 86850; 86900; 86901; 86920; 87086; 93005; 99284; J7040; P9016